=== PATIENT | male | born 1970 | race Hispanic/Latino ===

== ENCOUNTER 2018-02-18 11:48 | Outpatient (CLI) | payer OTHER ==
--- NOTE | 2018-02-18 15:09 | MRI ---
MRI OF LEFT SHOULDER 02/18/18 PROVIDED CLINICAL HISTORY: Left shoulder pain status post injury. FINDINGS: There is a small focus of partial thickness undersurface tearing involving the supraspinatus tendon a nteriorly, approximately 1 cm from the footplate. This involves slightly greater than 50% of the tend on fiber thickness. An additional tiny focus of high grade partial thickness undersurface tearing inv olves the more posterior fibers of the supraspinatus tendon near the footplate. The components of the rotator cuff appear otherwise intact. There is marked signal abnormality in the superior labrum compatible with a complex SLAP tear. There is signal alteration involving the anterior- superior and anterior-inferior glenoid labrum that may r eflect propagation of tear. There is no evidence for labral displacement. The intra-articular segmen t of the long head biceps tendon appears thickened and demonstrates increased signal intensity on flu id sensitive sequences. The glenoid labrum and glenohumeral articular cartilage are suboptimally evaluated in the absence of joint distention but demonstrate an otherwise unremarkable MR appearance. There is a poorly defined a ppearance to the humeral attachment of the inferior glenohumeral ligament centrally. No definite surr ounding soft tissue edema. Minimal acromioclavicular joint degenerative change. The amount of fluid within the glenohumeral join t is slightly greater than physiologic. There is a physiologic amount of subacromial subdeltoid bursa l fluid. No focal concerning regional marrow or muscular signal abnormality is apparent. IMPRESSION: 1. Complex nondisplaced SLAP tear. 2. Foci of partial thickness undersurface tearing involving the supraspinatus tendon as above. 3. Tendinosis and/or nonattenuating interstitial partial tearing of the intra-articular segment of the long head biceps tendon. 4. Small glenohumeral joint effusion. 5. Poorly defined appearance to the humeral attachment of the inferior glenohumeral ligament dal[place] trally, which may reflect partial tear. POS: BREN
== END 2018-02-18 11:49 | disposition home or self-care (01) ==
LOC: TBSIIMAG 11:48
PROVIDERS: ATTEND Family Medicine
DX: S49.92XA Unspecified injury of left shoulder and upper arm, initial encounter (principal); S43.432A Superior glenoid labrum lesion of left shoulder, initial encounter; S46.012A Strain of muscle(s) and tendon(s) of the rotator cuff of left shoulder, initial encounter

== ENCOUNTER 2018-03-23 11:00 | Outpatient (CLI) | payer OTHER ==
[2018-03-23 11:59] LABS: Anion Gap 11 mmol/L (10-20); BUN (Urea Nitrogen) 14 mg/dL (8.9-20.6); Calc. Creatinine Clearance 0 mL/min (70-130); Calcium 9.7 mg/dL (7.8-10.44); Carbon Dioxide 26 mmol/L (22-29); Chloride 105 mmol/L (98-107); Estimated GFR-MDRD Greater than 90; Glucose 202 mg/dL (70-105); Potassium 4.4 mmol/L (3.5-5.1); Sodium 138 mmol/L (136-145)
[2018-03-23 12:00] LABS: #Basophils 0.1 thou/uL (0.0-0.2); #Eosinphils 0.2 thou/uL (0.0-0.7); #Lymphocytes 1.8 thou/uL (1.20-3.40); #Monocytes 0.5 thou/uL (0.11-0.59); #Neutrophils 3.7 thou/uL (1.40-6.50); %Basophils 0.9 % (0.0-1.0); %Eosinophils 2.7 % (0.0-10.0); %Lymphocytes 29.2 % (21.0-51.0); %Monocytes 8.4 % (0.0-10.0); %Neutrophils 58.9 % (42.0-75.0); Hemoglobin 14.7 g/dL (14.0-18.0); Mean Corpuscular HGB CONC 33.6 g/dL (32.0-36.0); Mean Corpuscular Hemoglobin 30.2 pg (27.0-31.0); Mean Corpuscular Volume 90.1 fL (78.0-98.0); Platelet Count 265 thou/uL (130-400); RBC Distribution Width 12.1 % (11.5-14.5); Red Blood Cell (RBC) Count 4.86 mill/uL (4.70-6.10); White Blood Cell (WBC) Count 6.2 thou/uL (4.8-10.8)
== END 2018-03-23 11:01 | disposition home or self-care (01) ==
LOC: LABBT 11:00
PROVIDERS: ATTEND Orthopaedic Surgery
DX: Z01.818 Encounter for other preprocedural examination (principal); S43.432A Superior glenoid labrum lesion of left shoulder, initial encounter; S46.212A Strain of muscle, fascia and tendon of other parts of biceps, left arm, initial encounter; M75.102 Unspecified rotator cuff tear or rupture of left shoulder, not specified as traumatic
CPT/HCPCS: 80048; 85025; 93005; 93010

== ENCOUNTER 2018-03-27 10:20 | Day surgery (SDC) | payer OTHER ==
[2018-03-23 11:47] VITALS: BMI 28.7
[2018-03-27] MEDS ORDERED: Midazolam HCl 2 mg/2 ml Vial ONE (11:27)
[2018-03-27] MEDS ORDERED: Fentanyl 100 MCG/2 ML VIAL ONE ×2 (11:28→13:37)
[2018-03-27] MEDS ORDERED: CEFAZOLIN/Water 2 GM/20 ML SYRINGE ONE (11:28)
[2018-03-27] MEDS ORDERED: Ropivacaine 0.2% 550 ML 550 ML NERVE BLCK SCH (12:25)
[2018-03-27] MEDS ORDERED: Ondansetron PF 4 MG/2 ML Vial IVP PRN (12:25)
[2018-03-27] MEDS ORDERED: traMADol HCl 50 MG TAB PO PRN ×2 (12:25)
[2018-03-27] MEDS ORDERED: Promethazine HCl 25 MG/ML VIAL IM PRN (12:25)
[2018-03-27] MEDS ORDERED: HYDROcodone/Acetaminophen 5/325 mg Tablet PO PRN ×2 (12:25)
[2018-03-27] MEDS ORDERED: Zolpidem Tartrate 5 MG TAB PO PRN (12:25)
[2018-03-27] MEDS ORDERED: Ketorolac Tromethamine 30 MG/ML VIAL IVP PRN (12:25)
[2018-03-27] MEDS ORDERED: Fentanyl 100 MCG/2 ML VIAL IV PRN (12:26)
[2018-03-27] MEDS ORDERED: Ropivacaine 0.2% HCl/PF (40 MG/20 ML VIAL) ONE (13:02)
[2018-03-27] MEDS ORDERED: Ropivacaine 0.5% HCl/PF (150 MG/30 ML VIAL) ONE (13:02)
[2018-03-27] MEDS ORDERED: Glycopyrrolate 0.2 MG/ML 5 ML SYRINGE ONE (13:20)
[2018-03-27] MEDS ORDERED: PROPOFOL 200 MG/20 ML VIAL ONE (13:20)
[2018-03-27] MEDS ORDERED: Lidocaine 1% PF 5 ML VIAL ONE (13:20)
[2018-03-27] MEDS ORDERED: Ondansetron PF 4 MG/2 ML Vial ONE (13:20)
[2018-03-27] MEDS ORDERED: Ketorolac Tromethamine 30 MG/ML VIAL ONE (13:20)
--- NOTE | 2018-03-27 16:55 | OP ---
DATE OF PROCEDURE: 03/27/2018 PREOPERATIVE DIAGNOSES: Possible partial rotator cuff tear, labrum tear at the biceps root with part ial detachment of the biceps. POSTOPERATIVE DIAGNOSES: Insignificant rotator cuff tear, SLAP tear with unstable biceps. PROCEDURES: Arthroscopic debridement of glenoid labrum and arthroscopic biceps tenodesis. SURGEON: Justyn Narvaez M.D. COOK HELPER: Roberta Bocanegra PA-C. BLOOD LOSS: Minimal. SPECIMEN: None. DRAINS: None. COMPLICATIONS: None. DESCRIPTION OF PROCEDURE: The patient was taken to the operating room where general anesthesia was i nduced. He was placed in the right lateral decubitus position. The left arm was prepped and draped in the usual sterile fashion. Scope was placed in the glenohumeral joint. He had no significant art hritis. He had a very inflamed, erythematous biceps attachment, which was unstable. I tagged the bi ceps through an anterior portal and detached it using arthroscopy scissors. Scope was placed in suba cromial bursa. Extensive bursectomy was performed. CA ligament was taken down as needed. After the subacromial space was decompressed, I identified the biceps and I delivered it laterally and repaire d it with a FiberLoop suture. I drilled a 7 x 25 mm tunnel in the proximal humerus. The biceps was delivered into the bone tunnel and a Bio-Tenodesis screw was used to fix it into the humerus and sutu res were tied on top of the biceps tendon. Shoulder was then drained. Portals were closed with nylo n suture. Sterile dressings applied.
== END 2018-03-27 17:35 | disposition home or self-care (01) ==
LOC: SDC 10:20
PROVIDERS: ATTEND Orthopaedic Surgery
PROC: 0RBK4ZZ Excision of Left Shoulder Joint, Percutaneous Endoscopic Approach (ICD-10-PCS; principal; 2018-03-27)
PROC: 0LS24ZZ Reposition Left Shoulder Tendon, Percutaneous Endoscopic Approach (ICD-10-PCS; principal; 2018-03-27)
DX: S43.432A Superior glenoid labrum lesion of left shoulder, initial encounter (principal); S46.212A Strain of muscle, fascia and tendon of other parts of biceps, left arm, initial encounter; E11.9 Type 2 diabetes mellitus without complications; E78.5 Hyperlipidemia, unspecified; K21.9 Gastro-esophageal reflux disease without esophagitis; E66.3 Overweight; Z68.28 Body mass index [BMI] 28.0-28.9, adult; Z79.1 Long term (current) use of non-steroidal anti-inflammatories (NSAID); Z79.84 Long term (current) use of oral hypoglycemic drugs; Z79.899 Other long term (current) drug therapy; X50.0XXA Overexertion from strenuous movement or load, initial encounter; Y99.0 Civilian activity done for income or pay
CPT/HCPCS: A4306; C1713; G8984-GP-CN; G8985-GP-CN; G8986-GP-CN; J2250; J2795; J3010